=== PATIENT | female | born 2000 | race Caucasian/White ===

== ENCOUNTER 2021-07-30 04:27 | Inpatient (IN) ==
[2021-07-30 04:05] LABS: Basophils % 0.3 %; Eosinophils # 0.1 K/mcL (0.0-0.6); Eosinophils % 0.5 %; Hematocrit 36.7 % (35.3-44.9); Hemoglobin 12.5 g/dL (11.5-15.4); Immature Granulocytes % 0.6 % (0-4); Lymphocytes # 2.9 K/mcL (0.6-4.6); Lymphocytes % 23.9 %; Mean Corpuscular HGB Conc 34.1 g/dL (31.6-35.5); Mean Corpuscular Hemoglobin 30.6 pg (28.0-33.3); Mean Corpuscular Volume 89.7 fL (83.0-100.0); Mean Platelet Volume 10.6 fL (9.4-12.4); Monocytes # 0.9 K/mcL (0.0-1.3); Neutrophils # 8.3 K/mcL (1.6-8.9); Platelet Count 248 K/mcL (140-400); Red Blood Count 4.09 M/mcL (3.82-4.97); Red Cell Distribution Width 12.5 % (11.5-14.5); Segmented Neutrophils % 67.7 %; White Blood Count 12.3 K/mcL (4.3-11.1)
[2021-07-30 04:15] LABS: Amphetamine Screen,Urine Negative ng/mL (Cutoff=1000); Barbiturate Screen,Urine Negative ng/mL (Cutoff=200); Benzodiazepines Screen,Urine Negative ng/mL (Cutoff=200); Cannabinoid Screen,Urine Positive ng/mL (Cutoff = 50); Cocaine Screen,Urine Negative ng/mL (Cutoff= 300); Opiate Screen,Urine Negative ng/mL (Cutoff=300); Phencyclidine Screen,Urine Negative ng/mL (Cutoff=25)
[~2021-07-30 04:27] MED LIST: *HR* Nalbuphine 10 MG/ML AMPUL IV PRN; Azithromycin 500 MG in 0.9 % Sodium Chloride 250 ML IVPB PRN; Famotidine 20 MG/2 ML VIAL IVP PRN; Naloxone 0.4 MG/ML INJ IVP PRN; Ondansetron 4 MG/2 ML VIAL IVP PRN; Ringers Solution, Lactated 1,000 ML IVC SCH
[2021-07-30 04:39] LABS: Influenza A PCR Negative (Negative); Influenza B PCR Negative (Negative); Resp. Syncytial Virus PCR Negative (Negative)
[2021-07-30 04:40] LABS: SARS-CoV-2 by PCR (In House) Negative (Negative)
[2021-07-30] MEDS ORDERED: Epidural Premix (fent/bupiv) 110 ML EP ONE (06:21)
[2021-07-30] MEDS ORDERED: Oxytocin 20 units/ LR 1000 mL 20 UNIT/1,000 ML BAG IVC SCH ×2 (06:45→12:21)
[2021-07-30] MEDS ORDERED: Ibuprofen 600 MG TABLET PO ONE (11:55)
[2021-07-30] MEDS ORDERED: Oxytocin 20 units/ LR 1000 mL 20 UNIT/1,000 ML BAG IVC ONE (12:21)
[2021-07-30] MEDS ORDERED: Benzocaine/Menthol 56 GM AEROSOL SPRAY TP PRN (12:21)
[2021-07-30] MEDS ORDERED: Rho Immune Globulin 1,500 UNIT SYRINGE IM PRN (12:21)
[2021-07-30] MEDS ORDERED: Lanolin 7 G OINT...G. TP PRN (12:21)
[2021-07-30] MEDS: Acetaminophen 325 MG TABLET PO SCH (15:42)
[2021-07-30] MEDS: Ibuprofen 600 MG TABLET PO SCH (19:02)
[2021-07-30] MEDS: Ondansetron ODT 4 MG TAB.RAPDIS SL PRN (21:09)
[2021-07-30 21:14] VITALS: O2SAT 100
[2021-07-31] MEDS: Ibuprofen 600 MG TABLET PO SCH ×2 (00:05→07:52)
[2021-07-31 05:37] VITALS: TEMP 97.9
[2021-07-31] MEDS: Ondansetron ODT 4 MG TAB.RAPDIS SL PRN (07:05)
[2021-07-31 07:06] VITALS: BP 102/64; PULSE 86
[2021-07-31] MEDS: Acetaminophen 325 MG TABLET PO SCH (07:52)
[2021-07-31] MEDS ORDERED: Prenatal Vit/FA 1 EACH TABLET PO SCH (09:00)
== END 2021-07-31 12:30 | disposition home or self-care (01) | DRG 806 ==
LOC: 1NENULAB → 1NENUOBS 14:16
PROVIDERS: ADMIT Advanced Practice Midwife; ATTEND Advanced Practice Midwife